=== PATIENT | female | born 1970 | race Caucasian/White ===

== ENCOUNTER 2019-09-20 13:10 | Outpatient (CLI) | payer OTHER, BC, SELFPAY ==
--- NOTE | ~2019-09-20 | US_ITS ---
EXAMINATION: 1. US FNA w image guidance 2. US FNA additional DATE: 09/20/2019 14:27 INDICATION: Multinodular goiter. TECHNIQUE: The procedure and its benefits, risks, and benefits were discussed with the patient. Risks specifical ly discussed included bleeding. The patient verbalized understanding of the risks and agreed to proce ed. The neck was prepped and draped in the usual sterile manner. 1% lidocaine was used for local ane sthesia. Five passes were made with a 25G needle into the lesion in superior right thyroid lobe. Ap propriate needle location was documented with continuous sonographic guidance. The specimens were pa ssed to the ocular care technologist in the room. Five passes were made with a 25G needle into the lesion in inferior right thyroid lobe. Appropriate needle location was documented with continuous sonographic guidance. The specimens were passed to [facility] ocular care technologist in the room. There were no immediate complications. The patient unders tood to call the ordering physician for results next week and verbalized that understanding. FINDINGS: Grayscale ultrasound images demonstrate needles advanced into a 2.0 cm nodule in superior right thyro id lobe for biopsy. Grayscale ultrasound images demonstrate needles advanced into a 1.6 cm nodule in inferior right thyroid lobe for biopsy. IMPRESSION: 1. Ultrasound-guided fine needle aspiration of a nodule in superior right thyroid lobe. 2. Ultrasound-guided fine-needle aspiration of a nodule in inferior right thyroid lobe. Reviewed, dictated and finalized at location A. OR DIRECTOR MARKETING IMPRESSION: 1. Ultrasound-guided fine needle aspiration of a nodule in superior right thyr oid lobe. 2. Ultrasound-guided fine-needle aspiration of a nodule in inferior right thyro id lobe.
== END 2019-09-20 13:11 | disposition home or self-care (01) ==
LOC: ANHIMG 13:17
PROVIDERS: Visit Provider Otolaryngology
DX: E04.2 Nontoxic multinodular goiter (principal)
CPT/HCPCS: 10005; 10006; 88108; 88173

== ENCOUNTER 2022-01-08 07:42 | Outpatient (CLI) | payer OTHER, SELFPAY ==
--- NOTE | ~2022-01-08 | US_ITS ---
EXAMINATION: US thyroid DATE: 01/08/2022 08:08 INDICATION: Nontoxic single thyroid nodule TECHNIQUE: Multiple ultrasound images of the thyroid were obtained. COMPARISON: 09/12/2019 and 09/20/2019 FINDINGS: The right thyroid lobe measures 6.2 x 2.0 x 2.4 cm. The left thyroid lobe measures 5.1 x 1.4 x 1.8 c m. There are multiple similar-appearing solid hypoechoic nodules which are wider than tall with eith er smooth or ill-defined margins. A few demonstrate internal echogenic foci (TI-RADS 5, highly suspic ious , FNA if >=1.0 cm, annual followup is >0.5 cm) and a few without (TI-RADS 4, moderately suspicio us , FNA if >=1.5 cm, annual followup is >=1 cm). The largest nodules are 2.1 cm TI-RADS 4 nodule in the lateral upper right thyroid and a couple 1.6 and 1.5 cm TI RADS 5 nodules in the inferior right t hyroid. The 2 largest of these nodules are unchanged from 09/20/2019 at which time they were biopsied with pathology read as benign colloid nodules. IMPRESSION: 1. Stable multinodular goiter with prior biopsy of the 2 largest nodules on 09/20/2019 consistent with benign colloid nodules. Reviewed, dictated and finalized at location A. IMPRESSION: 1. Stable multinodular goiter with prior biopsy of the 2 largest nodules on 08/24 consistent with benign colloid nodules.
== END 2022-01-08 07:43 ==
PROVIDERS: PCP Otolaryngology; Visit Provider Otolaryngology
DX: E04.2 Nontoxic multinodular goiter (principal)
CPT/HCPCS: 76536

== ENCOUNTER 2022-01-08 08:22 | Outpatient (CLI) | payer OTHER, SELFPAY ==
[2022-01-10 13:20] LABS: T4 Thyroxine 6.3 mcg/dL (5.1-11.9); Triiodothryronine T3 Uptake 29 % (22-35)
== END 2022-01-08 08:23 | disposition home or self-care (01) ==
LOC: ANHLAB 08:27
PROVIDERS: PCP Otolaryngology; Visit Provider Otolaryngology
DX: E04.1 Nontoxic single thyroid nodule (principal)
CPT/HCPCS: 36415; 84436; 84439; 84479

== ENCOUNTER 2022-07-23 12:44 | Outpatient (NON) | payer OTHER, SELFPAY | END 2022-07-23 12:45 | disposition home or self-care (01) | LOC: ANHGOSHLAB 12:48 | PROVIDERS: PCP Internal Medicine; Visit Provider Clinical Nurse Specialist | DX: R30.0 Dysuria (principal) | CPT/HCPCS: 87077; 87086; 87186 ==

== ENCOUNTER 2022-07-28 08:06 | Outpatient (CLI) | payer OTHER, SELFPAY ==
[2022-07-28 18:51] LABS: Basophils Percent Auto 0.5 % (0.2-1.2); Eosinophils Absolute Auto 0.1 K/mm3 (0-0.3); Eosinophils Percent Auto 0.7 % (0-4.4); Hematocrit 41.2 % (37.0-47.0); Hemoglobin 13.5 g/dL (12.0-15.0); Immature Granulocyte Absolute 0.02 K/mm3 (0.00-0.031); Immature Granulocyte Percent A 0.2 % (0-0.5); Lymphocytes Absolute Auto 1.23 K/mm3 (0.9-3.2); Lymphocytes Percent Auto 15.3 % (18.3-44.2); Mean Corpuscular HGB Conc 32.8 g/dl (32-36); Mean Corpuscular Hemoglobin 32.6 pg (26-34); Mean Corpuscular Volume 99.5 fl (80-100); Mean Platelet Volume 9.6 fl (7.4-10.4); Monocytes Absolute Auto 0.6 K/mm3 (0.1-0.6); Monocytes Percent Auto 7.7 % (2.6-8.5); Neutrophils Absolute Auto 6.1 K/mm3 (1.3-6.7); Neutrophils Percent Auto 75.6 % (45.5-73.1); Platelet Count Result 299 k/mm3 (150-375); Red Blood Count 4.14 M/mm3 (4.2-5.4); Red Cell Distribution Width 13.7 % (11.5-14.5)
[2022-07-28 19:56] LABS: Immunoglobulin A 89 mg/dL (70-400); Immunoglobulin G 944 mg/dL (700-1600); Immunoglobulin M 238 mg/dL (40-230)
[2022-07-28 20:15] LABS: Alanine Aminotransferase 25 U/L (6-35); Albumin Level 4.3 g/dL (3.5-5.1); Alkaline Phosphatase 66 U/L (38-126); Anion Gap 6 mmol/L (8-16); Aspartate Amino Transferase 31 U/L (14-36); Bilirubin,Total 0.8 mg/dL (0.2-1.3); Blood Urea Nitrogen 10 mg/dL (7-17); Calcium 8.7 mg/dL (8.4-10.2); Carbon Dioxide 25 mmol/L (22-30); Chloride 107 mmol/L (98-107); Cholesterol 236 mg/dL (0-200); Estimated Glomerular Filt Rate > 60; Glucose 112 mg/dL (65-110); HDL Direct 51 mg/dL; Potassium 3.6 mmol/L (3.4-5.0); Sodium 138 mmol/L (137-145); Triglycerides 76 mg/dL (<150)
[2022-07-28 20:27] LABS: LDL Cholesterol Direct 144 mg/dL; Vitamin D 25 Hydroxy 19.6 ng/mL
[2022-07-28 20:44] LABS: Thyroid Stimulating Hormone 0.042 uIU/mL (0.465-4.680)
[2022-07-29 17:53] LABS: Hemoglobin A1C 5.9 % (<5.7)
[2022-08-01 23:47] LABS: Immunoglobulin E 50 kU/L (<=114)
== END 2022-07-28 08:07 | disposition home or self-care (01) ==
LOC: ANHGOSHLAB 08:07
PROVIDERS: PCP Internal Medicine; Visit Provider Clinical Nurse Specialist
DX: E04.1 Nontoxic single thyroid nodule (principal); E55.9 Vitamin D deficiency, unspecified; Z13.228 Encounter for screening for other metabolic disorders; Z13.220 Encounter for screening for lipoid disorders; Z01.84 Encounter for antibody response examination
CPT/HCPCS: 36415; 80053; 80061; 82306; 82784; 82785; 83036; 84443; 85025

== ENCOUNTER 2022-11-22 17:00 | Outpatient (CLI) | payer OTHER, SELFPAY ==
[2022-11-22 18:12] LABS: Thyroid Stimulating Hormone 0.185 uIU/mL (0.465-4.680)
[2022-11-26 13:39] LABS: Thyroid Stimulating Immunoglob <89 % baseline (<140)
[2022-11-27 05:41] LABS: Triiodothyronine T3 Free 3.6 pg/mL (2.3-4.2)
== END 2022-11-22 17:01 | disposition home or self-care (01) ==
LOC: ANHLAB 17:02
PROVIDERS: PCP Clinical Nurse Specialist; Visit Provider Internal Medicine Endocrinology, Diabetes & Metabolism
DX: R79.89 Other specified abnormal findings of blood chemistry (principal); E04.1 Nontoxic single thyroid nodule
CPT/HCPCS: 36415; 84439; 84443; 84445; 84481

== ENCOUNTER 2022-12-20 14:53 | Outpatient (CLI) | payer OTHER, SELFPAY ==
--- NOTE | ~2022-12-20 | NM_ITS ---
Thyroid uptake and scan: History: Graves' disease versus toxic nodule. Radiopharmaceutical: 0.399 mCi of I-123 was administered orally. Technique: Imaging was informed of the thyroid gland in the anterior, VENEZUELAN, and ANAND planes. Markers ar e placed on the chin and suprasternal notch. Findings: There is homogeneous and symmetric uptake of radiotracer seen in both lobes of the thyroid gland. The thyroid uptake is 31.1% (normal 10-30%), with the right lobe measuring 21.1% uptake and the left 10.7%. Impression: Mildly increased, diffuse thyroid uptake. This could reflect Graves' disease in the appropriate clini gaby setting. Correlate clinically and with thyroid function tests. Reviewed, dictated and finalized at [facility]. Impression: Mildly increased, diffuse thyroid uptake. This could reflect Graves' disease in the appropriate clinical setting. Correlate clinically and with thyroid functi on tests.
== END 2022-12-20 14:54 | disposition home or self-care (01) ==
PROVIDERS: PCP Clinical Nurse Specialist; Visit Provider Internal Medicine Endocrinology, Diabetes & Metabolism
DX: E05.90 Thyrotoxicosis, unspecified without thyrotoxic crisis or storm (principal); R79.89 Other specified abnormal findings of blood chemistry
CPT/HCPCS: 78014; A9516

== ENCOUNTER 2024-11-26 10:00 | Outpatient (CLI) | payer BC, SELFPAY ==
[2024-11-26 10:54] LABS: Kit Draw Collected
--- OUTSIDE RECORDS SUMMARY | 2024-11-26 11:21 | XMS_ITS | Clinical Summary ---
Author Organization [facility] Address [id number] [place] [phone] Phone Care Team Providers Care Cloth Mender Name Role Phone Unavailable Primary Care Provider Unavailabl e Allergies No known active allergies Social History Tobacco Use Types Packs/Day Years Used Date Smoking Tobacco: Never Assessed Comments Unknown Sex and Gender Information Value Date Recorded Sex Assigned at Not on file Legal Sex Female 12:13 PM KINESIOLOGY PROFESSOR Gender Identity Not on file Sexual Orientation Not on file Last Filed Vital Signs Vital Sign Reading Time Taken Comments Blood Pressure 116/64 07/08/2022 2:05 PM KINESIOLOGY PROFESSOR Pulse 81 07/08/2022 3:45 PM KINESIOLOGY PROFESSOR Temperature 37.1 C (98.7 F) 07/08/2022 12:14 PM KINESIOLOGY PROFESSOR Respiratory Rate 18 07/08/2022 3:45 PM KINESIOLOGY PROFESSOR Oxygen Saturation 97% 07/08/2022 3:45 PM KINESIOLOGY PROFESSOR Inhaled Oxygen Concentration - - Weight 81.6 kg (180 lb) 07/08/2022 12:14 PM KINESIOLOGY PROFESSOR Height 170.2 cm (5' 7 ) 07/08/2022 12:14 PM KINESIOLOGY PROFESSOR Body Mass Index 28.19 07/08/2022 12:14 PM KINESIOLOGY PROFESSOR Plan of Treatment Health Maintenance Due Date Last Done Comments DTAP/TDAP/TD VACCINES (1 - Tdap) 1991 HEPATITIS B VACCINES (1 of 3 - 19+ 3-dose series) 1991 HPV/Cotest (21-29) 1993 CERVICAL CANCER SCREENING 2002 HPV/Cotest (30-65) 2002 PAP SMEAR 2002 BREAST CANCER SCREENING 2012 COLORECTAL SCREENING 2017 Colorectal Cancer Screening 2017 FIT-DNA Q 3 years 2017 FIT/FOBT Q 1 year 2017 Flex Sig/CT Colonography Q 5 years 2017 ZOSTER VACCINE (1 of 2) 2022 INFLUENZA VACCINE (#1) 2024 PNEUMOCOCCAL VACCINE 0-49 YEARS Aged Out No longer eligible based on patient's age to complete this topic Insurance
== END 2024-11-26 10:01 | disposition home or self-care (01) ==
LOC: ANHGOSHLAB 10:01
PROVIDERS: PCP Internal Medicine; Visit Provider Clinical Nurse Specialist
DX: E04.1 Nontoxic single thyroid nodule (principal); E05.90 Thyrotoxicosis, unspecified without thyrotoxic crisis or storm; R73.01 Impaired fasting glucose; Z13.228 Encounter for screening for other metabolic disorders; Z13.220 Encounter for screening for lipoid disorders; E55.9 Vitamin D deficiency, unspecified
CPT/HCPCS: 36415

== ENCOUNTER 2024-12-11 16:07 | Outpatient (CLI) | payer BC, SELFPAY ==
--- NOTE | ~2024-12-11 | US_ITS ---
EXAMINATION: US thyroid DATE: 12/11/2024 16:27 INDICATION: Thyroid nodules. Personal history of multiple prior fine-needle aspirations, all benign TECHNIQUE: Multiple ultrasound images of the thyroid were obtained. COMPARISON: 01/08/2022 and dating back to 11/04/2012 FINDINGS: The right thyroid lobe measures 6 x 2 x 2.4 cm. Within the right lobe of the thyroid gland is a 22 x 14 x 15 mm nodule: Composition - spongiform Echogenicity -hyperechoic and isoechoic (1) Shape - wider than tall Margin - smooth Echogenic foci - none. = TR 1, benign. This nodule underwent biopsy in August of 2019, and yielded benign colloid nodule with cystic degene ration. Within the right lobe of the thyroid gland is a 13 x 10 x 10 mm nodule: Composition - spongiform Echogenicity -hyperechoic and isoechoic (1) Shape - wider than tall Margin - smooth Echogenic foci -punctate echogenic foci (3) = TR 4, moderately suspicious Greater than 1 cm, follow-up. Greater than 1.5 cm, FNA This nodule underwent biopsy in August of 2019, and yielded benign colloid nodule. The left thyroid lobe measures 5 x 1.3 x 1.6 cm. Within the left lobe of the thyroid gland is a 15 x 8 x 14 mm nodule: Composition - spongiform Echogenicity -hyperechoic and isoechoic (1) Shape - wider than tall Margin - smooth Echogenic foci - none. = TR 1, benign. Within the left lobe of the thyroid gland is a 6 x 4 x 8 mm nodule: Composition - spongiform Echogenicity -hyperechoic and isoechoic (1) Shape - wider than tall Margin - smooth Echogenic foci -macrocalcifications (1) = TR 2, not suspicious, no FNA The isthmus measures 0.3cm in anterior to posterior dimension. Within the isthmus of the thyroid gland is a 17 x 8 x 15 mm nodule: Composition -solid or almost completely solid (2) Echogenicity -hypoechoic (2) Shape - wider than tall Margin - smooth Echogenic foci - none. = TR 4, moderately suspicious Greater than 1 cm, follow-up. Greater than 1.5 cm, FNA This nodule was biopsied in 2018 yielding a benign follicular nodule with features of a hemorrhagic c yst. This nodule is unchanged in size from 2018 for which no further biopsy is recommended. There is otherwise normal homogeneous echotexture throughout the remainder of the thyroid gland. No a dditional discrete nodules identified. Increased vascular flow is present, unchanged from prior examinations.. IMPRESSION: Two nodules within the right lobe of the thyroid gland, both previously biopsied yielding benign resu lts for which no further biopsy is recommended. Two nodules within the left lobe of the thyroid gland, one demonstrating a TR 1 appearance (benign), and the second nodule demonstrating a TR 2 appearance (not suspicious, no FNA). A single nodule within the isthmus, unchanged in size from prior, demonstrating a TR 4 appearance for which biopsy was previously performed in 2018 yielding a benign follicular nodule with features of a hemorrhagic cyst for which no further biopsy is recommended. While follow-up of the bilateral nodules is not recommended (as per TI-RADS criteria) it may be perfo rmed. Reviewed, dictated and finalized at location A. IMPRESSION: Two nodules within the right lobe of the thyroid gland, both previously biopsie d yielding benign results for which no further biopsy is recommended. Two nodules within the left lobe of the thyroid gland, one demonstrating a TR 1 appearance (benign), and the second nodule demonstrating a TR 2 appearance (no t suspicious, no FNA). A single nodule within the isthmus, unchanged in size from prior, demonstrating a TR 4 appearance for which biopsy was previously performed in 2018 yielding a benign follicular nodule with features of a hemorrhagic cyst for which no furt her biopsy is recommended. While follow-up of the bilateral nodules is not recommended (as per TI-RADS cri teria) it may be performed.
== END 2024-12-11 16:08 | disposition home or self-care (01) ==
LOC: MICIMG 16:08
PROVIDERS: PCP Internal Medicine; Visit Provider Clinical Nurse Specialist
DX: E04.2 Nontoxic multinodular goiter (principal)
CPT/HCPCS: 76536

== ENCOUNTER 2025-06-03 03:13 | Day surgery (SDC) | payer BC, SELFPAY ==
[2025-05-23 09:26] VITALS: BMI 26.6
--- OUTSIDE RECORDS SUMMARY | 2025-06-03 03:15 | XMS_ITS | Patient Health Record ---
Author Organization [facility] Address [address] [place] [address] Care Team Providers Care Handle Finisher Name Role Phone Susy Jimenez Unavailable [phone] Reason For Referral No Information Medications Medication SIG (Take, Route, Frequency, Duration) Notes Start Date End Date Status Ergocalciferol 1.25 MG (85622 UT) Capsule 1 capsule Orally weekly; Duration: 90 days 03/18/2025 Active Vitamin D Active Omeprazole Active Social History Section Notes: tobacco: daily, over 35 years alcohol: maybe once a year Caffeine: yes Problems Problem Type SNOMED Code ICD Code Onset Dates Problem Status W/U Status Risk Notes Problem Chronic fatigue syndrome (disorder) (20504950) Chronic fatigue, unspecified (R53.82) Active confirmed Problem Multinodular goiter (047825881) Multinodular goiter (E04.2) Active confirmed Problem Type II diabetes mellitus without complication (961947568) Type 2 diabetes mellitus without complication, without long-term current use of insulin (E11.9) Active confirmed Problem Vitamin D deficiency (64786832) Vitamin D deficiency (E55.9) Active confirmed Vital Signs Heart Rate 69 /min 02/25/2025 Height-cm 170.18 cm 02/25/2025 Oximetry 97 % 02/25/2025 Blood pressure diastolic 78 mm Hg 02/25/2025 Weight-kg 78.93 kg 02/25/2025 Height 67 in 02/25/2025 Blood pressure systolic 137 mm Hg 02/25/2025 Weight 174.0 lbs 02/25/2025 BMI 27.25 kg/m2 02/25/2025 Encounters Encounter Location Date Provider Diagnosis [facility] Jimenez [address] [place] [address] 01/21/2025 Susy Jimenez Multinodular goiter E04.2 ; Type 2 diabetes mellitus without complication, without long-term current use of insulin E11.9 ; Multinodular goiter E04.2 ; Vitamin D deficiency E55.9 ; Type 2 diabetes mellitus without complication, without long-term current use of insulin E11.9 ; Vitamin D deficiency E55.9 ; Chronic fatigue, unspecified R53.82 and Dietary counseling and surveillance Z71.[address] Jimenez [address] [place] [address] 02/25/2025 Susy Jimenez Type 2 diabetes adrian litus without complication, without long-term current use of insulin E11.9 ; Vitamin D deficiency E55.9 ; Multinodular goiter E04.2 and Sensory motor neuropathy G62.[address] Jimenez [address] [place] [address] 03/18/2025 Susy Jimenez Vitamin D deficienc y E55.9 Assessments Encounter Date Diagnosis (ICD Code) Assessment Notes Treatment Notes Treatment Clinical Notes Section Notes 01/21/2025 Multinodular goiter (ICD-10 - E04.2) 01/21/2025 Multinodular goiter (ICD-10 - E04.2) 01/21/2025 Type 2 diabetes mellitus without complication, without long-term current use of insulin (ICD-10 - E11.9) 02/25/2025 Type 2 diabetes mellitus without complication, without long-term current use of insulin (ICD-10 - E11.9) 02/25/2025 Vitamin D deficiency (ICD-10 - E55.9) 03/18/2025 Vitamin D deficiency (ICD-10 - E55.9) 02/25/2025 Multinodular goiter (ICD-10 - E04.2) 01/21/2025 Type 2 diabetes mellitus without complication, without long-term current use of insulin (ICD-10 - E11.9) 01/21/2025 Vitamin D deficiency (ICD-10 - E55.9) 01/21/2025 Vitamin D deficiency (ICD-10 - E55.9) 02/25/2025 Sensory motor neuropathy (ICD-10 - G62.9) 01/21/2025 Chronic fatigue, unspecified (ICD-10 - R53.82) 01/21/2025 Dietary counseling and surveillance (ICD-10 - Z71.3) Spent 15 minutes preventative counseling patient on dietary recommendations and changes in setting of hyperglycemia- need to restrict refined sugars and processed foods and incorporate up to 150 minutes of moderate level activity weekly. 01/21/2025 Other Assessment and Plan: 1. Thyroid Dysfunction- Order full thyroid panel- Check iodine levels - Consider thyroid support- Ultrasound referral sent- Follow-up in 4-6 weeks with new blood work results 2. Prediabetes- Monitor blood sugar levels- Encourage continued dietary modifications and weight loss efforts- Reassess A1C and glucose levels at follow-up 3. Menopausal Symptoms- No specific treatment plan discussed for menopausal symptoms 4. Vitamin D Deficiency- Continue vitamin D supplementation- Check vitamin D levels at follow-up 5. Episodic Numbness and Syncope- Patient to report any future episodes for further evaluation- Consider more extensive workup if episodes continue 6. Elevated Liver Enzymes- Monitor liver enzyme levels in future lab work 7. Smoking- Encourage continued reduction in smoking and eventual cessation Spent 30 minutes preparing to see the patient (ex review of tests/chart), obtaining and / or reviewing separately obtained history, performing a medically appropriate examination and/or evaluation, counseling and educating the patient/family/auto care center manager, ordering medications, tests, or procedures, referring and communicating with other health health care aide, documenting clinical information in the electronic or other health record, independently interpreting results and communicating results to the patient/family/auto care center manager and care coordinating patient plan. Patient alert and oriented x 4 and aware of discussion noted above and in agreeance to plan in management of multinodular goiter, hyperglycemia/a1c 6.4%, weight management and fatigue. 02/25/2025 Other Assessment and Plan: 1. Thyroid Disorder- Order full thyroid panel, including TSI and TPO antibodies- Recommend thyroid supplements: 1-2 capsules daily (150 micrograms iodine per capsule)- Review lab results when available and adjust management accordingly- Follow up in 3-4 months or sooner if symptoms worsen- Monitor for symptoms such as weakness, heart racing, sleep disturbances, dizziness, or lightheadedness 2. Type 2 Diabetes Mellitus- Order hemoglobin A1c test- Evaluate impact of dietary changes on glycemic control- Provide education on diabetes management and importance of consistent dietary habits- Review results and adjust management as needed 3. Vitamin D Deficiency- Recommend vitamin D supplementation at least weekly (specific dosage to be determined)- Order vitamin D level with next set of labs to monitor response to supplementation 4. Fatigue and Exhaustion- Evaluate thyroid function, diabetes control, and vitamin D levels through ordered labs- Consider MRI of the brain if symptoms persist or worsen, particularly if accompanied by neurological symptoms such as blurred vision, double vision, incontinence, or unusual sensations- Instruct patient to report any worsening symptoms or new neurological symptoms 5. Elevated Liver Enzymes- Include liver function tests in the ordered lab work- Review results and consider further evaluation or referral if elevation persists 6. Weight Management- Encourage continuation of positive lifestyle changes, including smoking reduction and soda elimination- Provide education on healthy eating habits, particularly regarding candy consumption- Monitor weight at follow-up visits Spent 25 minutes preparing to see the patient (ex review of tests/chart), obtaining and / or reviewing separately obtained history, performing a medically appropriate examination and/or evaluation, counseling and educating the patient/family/auto care center manager, ordering medications, tests, or procedures, referring and communicating with other health health care aide, documenting clinical information in the electronic or other health record, independently interpreting results and communicating results to the patient/family/auto care center manager and care coordinating patient plan. Patient alert and oriented x 4 and aware of discussion noted above and in agreeance to plan in management of type 2 DM/diet controlled, vit D def, MNG and concerns for sensory changes/MRI brain ordered and provided to patient. Plan Of Treatment Pending Test Test Name Order Date .COMPREHENSIVE METABOLIC PANEL (70598) C MP 01/21/2025 .CBC (INCLUDES DIFF/PLT) (6399) 01/22/20 25 THYROID PEROXIDASE ANTIBODIES (5081) 09/2024 VITAMIN B12/FOLATE, SERUM PANEL (7065) 0 01/21/2025 T4, FREE (866) 01/21/2025 TSH (899) 01/21/2025 T3, FREE (88760) 01/21/2025 .VITAMIN D,25-OH,TOTAL,IA (19003) 2024 IODINE, SERUM/PLASMA (09012) 01/21/2025 TSI (THYROID STIMULATING IMMUNOGLOBULIN) (81713) 01/21/2025 *MRI BRAIN W/O AND W/ CONTRAST [EBENEZERATDUNCAN ISICA] 30042 02/25/2025 Insurance Providers Payer Name Payer Address Payer Phone Subscriber Number Group Number Insured Name Patient Relationship to Insured Coverage Start Date Coverage End Date Mildred NOVOA [address] [place] [address] [id number] Dana Landeros Self - patient is the insured Medical (General) History Medical History History ICD Code type 2 diabetes hyperthyroidism
--- OUTSIDE RECORDS SUMMARY | 2025-06-03 03:15 | XMS_ITS | Clinical Summary ---
Author Organization [facility] Address [address] [place] [address] Care Team Providers Care Engineer Chief Name Role Phone Unknown, Notinfile Primary Care Provider Unavail able Allergies No known active allergies Medications No known medications Active Problems Problem Noted Date Diagnosed Date Epistaxis, recurrent 05/01/2025 Assessment & Plan (05/01/2025 6:51 PM CDT): Patient with spontaneous recurrent left nares epistaxis. Unable to visualize area of origin. Previous episodes in the past have required cauterization. Soaked cotton ball in Afrin nasal spray and placed in left naris. This was beneficial initially however bleeding once again returned. Patient instructed on need for emergency room evaluation as she will most likely need nasal packing or cauterization. Patient and son and daughter in agreement with plan of care and plan to take patient to [facility] here. Encounters Date Type Department Care Team Description 05/01/2025 5:45 PM CDT Office Visit [facility] [address] [place] [address] Madeline Means, MARCOS Epistaxis, recurrent (Primary Dx) from Last 3 Months Medical History Medical History Date Comments Personal history of other en docrine, nutritional and metabolic disease History of thyroid d isorder - (Added by TW Conv) Family History Medical History Relation Name Comments Lymphoma Father Family history of lymphoma - (Added by TW Conv) Thyroid disease Other Family histo ry of thyroid disease - (Added by TW Conv) Relation Name Status Comments Father Other Social History Tobacco Use Types Packs/Day Years Used Date Smoking Tobacco: Never Assessed Comments Unknown Sex and Gender Information Value Date Recorded Sex Assigned at Not on file Legal Sex Female 8:39 AM 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 TEACHING Gender Identity Not on file Sexual Orientation Not on file Obstetrics History Last Filed Vital Signs Vital Sign Reading Time Taken Comments Blood Pressure - - Pulse - - Temperature 36.6 C (97.9 F) 05/01/2025 5:45 PM CDT Respiratory Rate 18 05/01/2025 5:45 PM CDT Oxygen Saturation - - Inhaled Oxygen Concentration - - Weight - - Height - - Body Mass Index - - Plan of Treatment Health Maintenance Due Date Last Done Comments Breast Cancer Screening-Mammogram 1972 Cervical Cancer Screening 1972 Colon Cancer Screening-Colonoscopy 1972 Depression Screening 1972 Hepatitis C Screening 1972 DTaP/Tdap/Td Vaccine (1 - Tdap) 1983 Hepatitis B Screening 1990 Regular Well Visit/Exam 18-64 1990 Zoster Vaccine (1 of 2) 2022 Influenza Vaccine (#1) 2025 Pneumococcal vaccine <65 Aged Out No longer eligible based on patient's age to complete this topic Insurance [employer] [place] BLUE [facility] O Care Teams Engineer Chief Relationship Specialty Start Date End Date Unknown, Notinfile PCP - General 09/02/17
--- OUTSIDE RECORDS SUMMARY | 2025-06-03 03:15 | XMS_ITS | Clinical Summary ---
Author Organization [facility] Address [facility] [place] [address] Care Team Providers Care Reading Tutor Name Role Phone Brenda Dubose ELECTRONICS RESEARCH ENGINEER Primary Care Provider [phone] Allergies No known active allergies Medications No known medications Encounters Date Type Department Care Team Description 05/01/2025 6:47 PM CDT - 05/01/2025 9:11 PM CDT Emergency [facility] [place] [address] Nosebleeds Discharge Disposition: Left Against Medical Advice 05/01/2025 Travel from Last 3 Months Social History Tobacco Use Types Packs/Day Years Used Date Smoking Tobacco: Every Day Cigarettes Smokeless Tobacco: Never Tobacco Cessation:Ready to Q uit: Not Asked; Counseling Given: Not Answered Alcohol Use Standard Drinks/Week Comments Not Currently 0 (1 standard drink = 0.6 oz pur e alcohol) Comments No Sex and Gender Information Value Date Recorded Sex Assigned at Not on file Legal Sex Female 6:29 PM CDT Gender Identity Not on file Sexual Orientation Not on file Last Filed Vital Signs Vital Sign Reading Time Taken Comments Blood Pressure 141/80 05/01/2025 7:25 PM CDT Pulse 75 05/01/2025 8:40 PM CDT Temperature 36.4 C (97.5 F) 05/01/2025 6:32 PM CDT Respiratory Rate 20 05/01/2025 8:40 PM CDT Oxygen Saturation 98% 05/01/2025 8:40 PM CDT Inhaled Oxygen Concentration - - Weight 79.4 kg (175 lb) 05/01/2025 6:32 PM CDT Height 170.2 cm (5' 7) 05/01/2025 6:32 PM CDT Body Mass Index 27.41 05/01/2025 6:32 PM CDT Plan of Treatment Health Maintenance Due Date Last Done Comments Cervical Cancer Screening Pa p Smear (Age 30 to 64) Every 3 Years 1972 Colorectal Cancer Screening Colonoscopy (10 Years) 1972 Annual Physical 1975 Hepatitis C 1990 DTaP, Tdap and Td Vaccines ( 1 - Tdap) 1991 Hepatitis B Vaccines (1 of 3 - 19+ 3-dose series) 1991 Pneumococcal Vaccine: 50+ Ye ars (1 of 2 - PCV) 1991 Cervical Cancer Screening Pa p with HPV Testing (Age 30 to 64) Every 5 Years 2002 Cervical Cancer Screening with HPV 2002 Mammogram Screening 2012 Zoster Vaccines (1 of 2) 2022 COVID-19 Vaccine (2023-2 5 season) 2025 Influenza Adult (#1) 2025 Meningococcal B Vaccine Aged Out No l onger eligible based on patient's age to complete this topic Meningococcal Vaccine Aged Out No elisha serene eligible based on patient's age to complete this topic RSV Immunizations Under 20 Months Aged Out No longer eligible based on patient's age to complete this topic Procedures Procedure Name Priority Date/Time Associated Diagnosis Comments COMPREHENSIVE METABOLIC PANEL STAT 05/01/2025 6:54 PM CDT CBC W/DIFF AUTOMATED STAT 05/01/2025 6:54 PM CDT from Last 3 Months Results * (ABNORMAL) COMPREHENSIVE METABOLIC PANEL (05/01/2025 6:54 PM CDT) GLUCOSE 133(H) 70 - 99 MG/DL 05/01/2025 7:27 PM CDT [facility] BUN 11 7 - 18 MG/DL 05/01/2025 7:27 PM CDT [facility] CREATININE S/P/B 0.78 0.55 - 1.02 MG/DL 05/01/2025 7:27 PM CDT [facility] SODIUM S/P/B 139 136 - 145 MMOL/L 05/01/2025 7:27 PM CDT [facility] POTASSIUM S/P/B 3.4(L) 3.5 - 5.1 MMOL/L 05/01/2025 7:27 PM CDT [facility] CHLORIDE S/P/B 108 97 - 115 MMOL/L 05/01/2025 7:27 PM CDT [facility] CO2 26.4 21 - 32 MMOL/L 05/01/2025 7:27 PM CDT [facility] CALCIUM S/P/B 9.6 8.5 - 10.1 MG/DL 05/01/2025 7:27 PM CDT [facility] BILIRUBIN TOTAL S/P/B 0.3 0.2 - 1.2 MG/DL 05/01/2025 7:27 PM CDT [facility] Comment: THIS ASSAY IS NOT RECOMMENDED FOR PATIENTS UNDERGOING TREATMENT WITH ELTROMBOPAG DUE TO THE POTENTIAL FOR FALSELY ELEVATED RESULTS. TOTAL PROTEIN S/P/B 7.1 6.4 - 8.2 G/DL 05/01/2025 7:27 PM CDT [facility] ALBUMIN S/P/B 3.8 3.4 - 5.0 G/DL 05/01/2025 7:27 PM CDT [facility] AST 25 15 - 37 U/L 05/01/2025 7:27 PM CDT [facility] ALT 30 14 - 55 U/L 05/01/2025 7:27 PM T [facility] ALKALINE PHOSPHATASE S/P/B 70 50 - 136 U/L 05/01/2025 7:27 PM CDT [facility] ANION GAP 4.6 2 - 10 MMOL/L 05/01/2025 7:27 PM CDT [facility] BUN CREATININE RATIO 14.1 6 - 26 05/01/2025 7:27 PM CDT [facility] A/G RATIO 1.2 1.0 - 2.0 RATIO 05/01/2025 7:27 PM CDT [facility] GFR ESTIMATE >90 >90 ML/MIN/1.7 3 M2 05/01/2025 7:27 PM CDT [facility] Comment: NOTE: eGFR is not calculated for patients <18 years of age or gender unknown. This is an estimated GFR calculation using the new CKD EPI creatinine equation without race and so does not require a correction factor for race. This estimated GFR should not be used for calculating drug doses. 05/01/2025 6:54 PM CDT Peter Gonzales PA-C LABORATORY Final Resul t [facility] [address] [id number], [place] [phone] * (ABNORMAL) CBC W/DIFF AUTOMATED (05/01/2025 6:54 PM CDT) WBC 9.83 4.5 - 11.0 x10'3/uL 05/01/2025 7:24 PM CDT [facility] RBC 4.12(L) 4.20 - 5.40 x10'6/uL 05/01/2025 7:24 PM CDT [facility] HGB 13.3 12.0 - 16.0 G/DL 05/01/2025 7:24 PM CDT [facility] HCT 39.3 38.0 - 48.0 % 05/01/2025 7:24 PM CDT [facility] MCV 95.4 81.0 - 99.0 FL 05/01/2025 7:24 PM CDT [facility] MCH 32.3(H) 27.0 - 31.0 PG 05/01/2025 7:24 PM CDT [facility] MCHC 33.8 32.0 - 36.0 G/DL 05/01/2025 7:24 PM CDT [facility] RDW 12.9 11.5 - 14.5 % 05/01/2025 7:24 PM CDT [facility] PLT 282 130 - 400 x10'3/uL 05/01/2025 7:24 PM CDT [facility] MPV 9.7 9.3 - 12.2 FL 05/01/2025 7:24 PM CDT [facility] DIFFERENTIAL TYPE AUTOMATED DIFFERENTIAL 05/01/2025 7:24 PM CDT [facility] NEUTROPHILS % 67.5 % 05/01/2025 7:24 PM CDT [facility] LYMPHOCYTES % 22.0 % 05/01/2025 7:24 PM CDT [facility] MONOCYTES % 9.4 % 05/01/2025 7:24 PM CDT [facility] EOSINOPHILS 0.7 % 05/01/2025 7:24 PM CDT [facility] BASOPHILS 0.2 % 05/01/2025 7:24 PM CDT [facility] IMMATURE GRANS % 0.2 % 05/01/20 7:24 PM CDT [facility] ABS. NEUTROPHILS 6.64 1.80 - 7.70 x10'3/uL 05/01/2025 7:24 PM CDT [facility] ABS. LYMPHOCYTES 2.16 1.00 - 4.80 x10'3/uL 05/01/2025 7:24 PM CDT [facility] ABS. MONOCYTES 0.92(H) 0.24 - 0.86 x10'3/uL 05/01/2025 7:24 PM CDT [facility] ABS. EOSINOPHILS 0.07 0.04 - 0.36 x10'3/uL 05/01/2025 7:24 PM CDT [facility] ABS. BASOPHILS 0.02 0.01 - 0.08 x10'3/uL 05/01/2025 7:24 PM CDT [facility] ABS. IMMATURE GRANULOCYTES 0.02 0.00 - 0.49 x10'3/uL 05/01/2025 7:24 PM CDT [facility] 05/01/2025 6:54 PM CDT Peter Gonzales PA-C LABORATORY Final Resul t [facility] [address] [id number], from Last 3 Months Insurance Care Teams Reading Tutor Relationship Specialty Start Date End Date Brenda Dubose FNP [address] [place] [address] [address] [place] [address] PCP - General CLINICAL NURSE SPECIALIST 05/01/25
--- OUTSIDE RECORDS SUMMARY | 2025-06-03 03:15 | XMS_ITS | Patient Health Record ---
Author Organization [facility] [employer] [employer] Address [address] [place] [address] Care Team Providers Care Nut Chopper Name Role Phone UNKNOWN, UNKNOWN Primary Care Provider Greg Zuñiga [phone] Allergies No Known Allergies Reason For Referral No Information Medications Medication SIG (Take, Route, Fr equency, Duration) Notes Start Date End Date Status Esomeprazole Magnesium Active Ergocalciferol Activ e Social History Tobacco Use: Social History Observation Description Date Details (start date - stop date) Current Smoker NA - NA Social History Tobacco Use: Social Info Question Answer Notes Tobacco Control (Standard) Tobacco use: Current smoker How often do you smoke cigarettes? Every day How many cigarettes a day do you smoke? 6-10 Additional Details Category Social Info Options Details Miscellaneous: Exercise: none Drugs/Alcohol: Alcohol use: Denies curren t alcohol use Recreational drugs Patient denie s recreational drug use Problems Problem Type SNOMED Code ICD Code Onset Dates Problem Status W/U Status Risk Notes Problem Type II diabetes mellitus without complication (211115352) Type 2 diabetes mellitus without complication, without long-term current use of insulin (E11.9) Active confirmed Vital Signs Height 67 in 12/27/2024 Weight 175 lbs 12/27/2024 BMI 27.41 kg/m2 12/27/2024 Encounters Encounter Location Date Provider Diagnosis [address] [facility] [address] [place] [address] 12/27/2024 Greg Vang Mucoid cyst, joint M67.40 ; Myxoid cyst M71.30 ; Toe pain, left M79.675 and Type 2 diabetes mellitus without complication, without long-term current use of insulin E11.9 Assessments Encounter Date Diagnosis (ICD Code) Assessment Notes Treatment Notes Treatment Clinical Notes Section Notes 12/27/2024 Mucoid cyst, joint (ICD-10 - M67.40) 12/27/2024 Myxoid cyst (ICD-10 - M71.30) 12/27/2024 Toe pain, left (ICD-10 - M79.675) 12/27/2024 Type 2 diabetes mellitus without complication, without long-term current use of insulin (ICD-10 - E11.9) Diabetic foot education was discussed including the nature of increased risk of developing foot problems due to the damage nerves and vessels of the feet caused by diabetes. The importance of daily self foot exams was stressed. Additionally, the patient was encouraged to control the blood sugar as well as possible and I explained the direct correlation between the incidence of diabetic foot complications and how well the blood sugar is controlled. I encouraged the patient to walk for exercise to help improve circulation to the feet as well as to help control excess blood sugar which I explained may also help to reduce or slow the progression of neuropathy symptoms. Additionally I recommended daily application of lotion to the feet to keep skin well hydrated. Advised to avoid walking w/o shoes on and discussed the importance of wearing properly fitted and supportive shoes and how wearing a shoe that does not fit properly can lead to blisters, open sores, infections and amputation. Literature regarding diabetic foot care was dispensed 12/27/2024 Other I did examine a nd evaluate the patient today. I explained to the patient that she is suffering from mucoid or myxoid cysts and have recommended that since there are asymptomatic that she leave them alone and stop picking at them. She should monitor for any worsening symptoms such as pain or signs of infection and certainly if they do become symptomatic I did explain to her that a lot of times I will go ahead and anesthetize the digit and perform a destructive procedure to the cysts however performing that procedure does have a higher recurrence rate than performing an arthroplasty of the associated joint. I will see her back in clinic on an as-needed basis Plan Of Treatment No Information Insurance Providers Payer Name Payer Address Payer Phone Subscriber Number Group Number Insured Name Patient Relationship to Insured Coverage Start Date Coverage End Date [facility] [address] [place] [address] [id number] Dana Landeros Self - patient is the insured Medical (General) History Medical History History ICD Code Diabetes High cholesterol Thyroid disease
--- OUTSIDE RECORDS SUMMARY | 2025-06-03 03:15 | XMS_ITS | Clinical Summary ---
Author Organization [facility] Address [address] [place] [id number] Phone Care Team Providers Care Quarry Supervisor Open Pit Name Role Phone Unavailable Primary Care Provider Unavailabl e Allergies No known active allergies Social History Tobacco Use Types Packs/Day Years Used Date Smoking Tobacco: Never Assessed Comments Unknown Sex and Gender Information Value Date Recorded Sex Assigned at Not on file Legal Sex Female 12:13 PM PASTE UP ARTIST Gender Identity Not on file Sexual Orientation Not on file Last Filed Vital Signs Vital Sign Reading Time Taken Comments Blood Pressure 116/64 07/08/2022 2:05 PM PASTE UP ARTIST Pulse 81 07/08/2022 3:45 PM PASTE UP ARTIST Temperature 37.1 C (98.7 F) 07/08/2022 12:14 PM PASTE UP ARTIST Respiratory Rate 18 07/08/2022 3:45 PM PASTE UP ARTIST Oxygen Saturation 97% 07/08/2022 3:45 PM PASTE UP ARTIST Inhaled Oxygen Concentration - - Weight 81.6 kg (180 lb) 07/08/2022 12:14 PM PASTE UP ARTIST Height 170.2 cm (5' 7) 07/08/2022 12:14 PM PASTE UP ARTIST Body Mass Index 28.19 07/08/2022 12:14 PM PASTE UP ARTIST Plan of Treatment Health Maintenance Due Date Last Done Comments DTAP/TDAP/TD VACCINES (1 - Tdap) 1991 HEPATITIS B VACCINES (1 of 3 - 19+ 3-dose series) 08/23 HPV/Cotest (21-29) 1993 CERVICAL CANCER SCREENING 2002 HPV/Cotest (30-65) 2002 PAP SMEAR 2002 BREAST CANCER SCREENING 2012 COLORECTAL SCREENING 2017 Colorectal Cancer Screening 2017 FIT-DNA Q 3 years 2017 FIT/FOBT Q 1 year 2017 Flex Sig/CT Colonography Q 5 years 2017 ZOSTER VACCINE (1 of 2) 2022 INFLUENZA VACCINE (#1) 2025 Insurance
--- NOTE | 2025-06-03 07:11 | P.PNAN_ITS ---
Anes - Initial Pre Proc Eval Procedure: Operation Date: 06/03/25 10:00 Proposed Procedures p Esophagogastroduodenoscopy & Colonoscopy - Morales Yousif MD Date/Time: 06/03/25 07:11 Surgeon: Morales Yousif MD Pre Op Diagnosis: Dysphagia, unspecified, Screening Patient Data Age: 54 Gender: F Height: 1.7 m Weight: 77 kg Allergies Allergy/AdvReac Type Severity Reaction Status Date / Time No Known Allergies Allergy Verified 06/03/25 08:44 Home Medications ?Medication ?Instructions ?Recorded ?Confirmed ?Type blood sugar diagnostic (Blood #50 ea 12/10/24 Rx Glucose Test strips) blood-glucose meter #1 ea 12/10/24 Rx cholecalciferol (vitamin D3) 1,250 1,250 mcg PO WEEKLY #8 tabs 12/10/24 06/03/25 Rx mcg (50,000 unit) tablet lancets 31 gauge #100 ea 12/10/24 Rx mupirocin 2 % topical ointment 1 applic topical QID #2 2 grams 05/02/25 05/23/25 Rx (Centany) Patient hx anesthesia problems: none Family hx anesthesia problems: none Results Review: All pre-operative results and documents have been reviewed as part of the pre- operative evaluation. [facility] Past Medical History Medical History (Updated 05/31/25 @ 15:50 by Jose Luis Byers DO) Type 2 diabetes mellitus Hyperglycemia Prediabetes Encounter to [facility] care Hospital discharge follow-up Migraine Headache Thyroid nodule Family History Family History Father Lymphoma Mother Thyroid disorder Sibling Thyroid disorder Social History Social History (Updated 06/03/25 @ 08:56 by Jose Luis Byers DO) Smoking packs per day: 1 Smoking cigarettes per day: 20.0 Years smoked: 40 Smoking pack-years: 40.00 Smoking status: Current every day smoker Tobacco type: cigarettes Alcohol intake: never Substance use: current Substance use type: marijuana Other substance usage details: daily Lack of Transportation: No Lack of Food: Never True Current Housing: I Have Housing Concerned About Future Housing: No Difficulty Paying Gas/Electric Bills: No Difficulty Paying for Meds: No Currently Unemployed: No Education: Associate Degree Difficulty w/ Childcare or Family Care: No Living arrangements: with family Occupation/Education: occupation 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 Informed Consent: The patient's anesthetic plan and its attendant risks and benefits were discussed with the patient/family/POA. Questions were solicited and answers provided to the satisfaction of the patient/family/POA.
[2025-06-03 08:47] VITALS: BP 145/71; PULSE 66; RESP 18; TEMP 36.6; O2SAT 100
[2025-06-03 08:53] LABS: BEDSIDEPREGUCG Negative (Negative)
[2025-06-03] MEDS: LACTATED RINGERS 1,000 ML 150 ML IV CONT (08:58)
[2025-06-03] MEDS: SIMETHICONE ORAL SUSPENSION 20 MG/0.3 ML 30 ML BOTTLE 1.8 ML PO (09:03)
--- NOTE | 2025-06-03 09:47 | PM.IMHP ---
H&P: [facility] History of Present Illness Date/Time: 06/03/25 09:47 Chief Complaint: Dysphagia-screening colonoscopy Narrative: this patient has been experiencing dysphagia to solid foods closely for the past 2 years, progressively worsening. He gets at least 3 episodes of dysphagia per week. She denies heartburn, nausea, vomiting or unintentional weight loss. In addition to an EGD, she is also referred for her 1st screening colonoscopy. There is no family history of colorectal cancer. Review of Systems Review of Systems: All systems reviewed & are unremarkable except as noted in HPI and below PMFSH Past Medical History Medical History (Updated 05/31/25 @ 15:50 by Jose Luis Byers DO) Type 2 diabetes mellitus Hyperglycemia Prediabetes Encounter to [facility] care Hospital discharge follow-up Migraine Headache Thyroid nodule Family History Family History Father Lymphoma Mother Thyroid disorder Sibling Thyroid disorder Social History Social History (Updated 06/03/25 @ 08:56 by Jose Luis Byers DO) Smoking packs per day: 1 Smoking cigarettes per day: 20.0 Years smoked: 40 Smoking pack-years: 40.00 Smoking status: Current every day smoker Tobacco type: cigarettes Alcohol intake: never Substance use: current Substance use type: marijuana Other substance usage details: daily Lack of Transportation: No Lack of Food: Never True Current Housing: I Have Housing Concerned About Future Housing: No Difficulty Paying Gas/Electric Bills: No Difficulty Paying for Meds: No Currently Unemployed: No Education: Associate Degree Difficulty w/ Childcare or Family Care: No Living arrangements: with family Occupation/Education: occupation 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 Gender identity (if verbalized by the patient): Female Spiritual care concerns: No Meds Home Medications and Allergies Home Medications ?Medication ?Instructions ?Recorded ?Confirmed ?Type blood sugar diagnostic (Blood #50 ea 12/10/24 Rx Glucose Test strips) blood-glucose meter #1 ea 12/10/24 Rx cholecalciferol (vitamin D3) 1,250 1,250 mcg PO WEEKLY #8 tabs 12/10/24 06/03/25 Rx mcg (50,000 unit) tablet lancets 31 gauge #100 ea 12/10/24 Rx mupirocin 2 % topical ointment 1 applic topical QID #22 grams 05/02/25 05/23/25 Rx (Centany) Allergies Allergy/AdvReac Type Severity Reaction Status Date / Time No Known Allergies Allergy Verified 06/03/25 08:44 Vital Signs Vital Signs - 24 hr 06/03/25 08:47 Temperature 97.8 F Pulse Rate 66 Respiratory Rate 18 Blood Pressure 145/71 H Pulse Oximetry 100 Oxygen Delivery Room Air Exam Const: General: cooperative and healthy appearing Resp: Effort & Inspection: normal respiratory effort and able to speak in complete sentences Auscultation: clear to auscultation bilaterally Cardio: Rate: regular rate Rhythm: regular rhythm GI: Inspection: normal to inspection GI Palp: No No hepatosplenomegaly present Auscultation: normal bowel sounds Rectal Exam: deferred Skin: General skin exam: normal color Psych: Appearance: grossly normal Mental Status: mental status grossly normal Assessment and Plan Assessment and plan (1) Difficulty swallowing: Code(s): R13.10 - Dysphagia, unspecified Status: Acute Assessment and Plan: The patient is deemed a good candidate for the procedures. Consent signed. Will proceed. (2) Screening for colon cancer: Code(s): Z12.11 - Encounter for screening for malignant neoplasm of colon Status: Acute
--- NOTE | 2025-06-03 10:01 | S_PTH ---
PATIENT: Dana Landeros LOC: [facility] U#:[id number] AGE/SX: 54/F ROOM: RE06/03/[address]: Morales Yousif MD : 1970 BED: DIS: 06/03/2025 SPEC #: [id number] RECD: 06/03/25 10:36 STATUS: KECIA REQ #: [id number] WILBERT: 06/03/25 10:[address]: Morales Yousif DEPT: [facility] Surgical RECD BY: Shea Painting MLT, ([facility]) ENTERED: 06/03/25 10:37 SP TYPE: Surgical OTHR DR: Juan Garcia DO Tissues: A - Esophageal Biopsy Procedures: Hematoxylin and Eosin Stain Gross and Microscopic Level 4
--- NOTE | 2025-06-03 10:06 | SUR.OPER ---
egd ended at 1003 and colonoscopy started at 1011.
[2025-06-03 10:24] VITALS: BP 111/60; PULSE 58; RESP 15; O2SAT 100
[2025-06-03 10:34] VITALS: BP 123/70; PULSE 63; RESP 19; O2SAT 100
[2025-06-03 10:44] VITALS: BP 146/76; PULSE 58; RESP 15; O2SAT 100
== END 2025-06-03 10:55 | disposition home or self-care (01) ==
PROVIDERS: Anesthesiology; PCP Internal Medicine; Referring Provider Clinical Nurse Specialist; Visit Provider Internal Medicine Gastroenterology
PROC: 0DJ08ZZ Inspection of Upper Intestinal Tract, Via Natural or Artificial Opening Endoscopic (ICD-10-PCS; CPT 45378; principal; 2025-06-03 10:00)
DX: Z12.11 Encounter for screening for malignant neoplasm of colon (principal); K29.50 Unspecified chronic gastritis without bleeding; E11.9 Type 2 diabetes mellitus without complications; F17.210 Nicotine dependence, cigarettes, uncomplicated; F12.90 Cannabis use, unspecified, uncomplicated; Z80.7 Family history of other malignant neoplasms of lymphoid, hematopoietic and related tissues
CPT/HCPCS: 43239; 45378; 82948; 88305; J2704; J7120

== ENCOUNTER 2025-08-12 08:48 | Outpatient (CLI) | payer BC, SELFPAY ==
--- OUTSIDE RECORDS SUMMARY | 2025-08-12 09:26 | XMS_ITS | Clinical Summary ---
Author Organization [facility] Address [address] [place] [address] Care Team Providers Care Transmission Technician Name Role Phone Unknown, Notinfile Primary Care [...] care and plan to take patient to [facility] here. 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
--- OUTSIDE RECORDS SUMMARY | 2025-08-12 09:26 | XMS_ITS | Patient Health Record ---
Author Organization [facility] Address [address] [facility] [address] [place] [address] Care Team Providers Care Grain Scooper Name Role Phone UNKNOWN, UNKNOWN Primary Care Provider Greg Zuñiga [phone] Allergies No Known Allergies Reason For Referral [...] Problem Type II diabetes mellitus without complication (667054382) Type 2 diabetes mellitus without complication, without long-term current use of insulin (E11.9) Active confirmed Vital Signs Height 67 in 12/27/2024 Weight 175 lbs 12/27/2024 BMI 27.41 kg/m2 12/27/2024 Encounters Encounter Location Date Provider Diagnosis [facility] [address] [place] [address] 12/27/2024 Greg Vang Mucoid cyst, joint M67.40 [...] Insured Coverage Start Date Coverage End Date [facility] [address] [place] [address] [id number] Dana Landeros Self - patient is the insured Medical (General) History Medical History History ICD Code Diabetes High cholesterol Thyroid disease
--- OUTSIDE RECORDS SUMMARY | 2025-08-12 09:26 | XMS_ITS | Patient Health Record ---
Author Organization [facility] Address [address] [place], [place] [address] Phone [phone] Care Team Providers Care Business Director Name Role Phone Susy Jimenez MD Unavailable [phone] Reason For Referral No Information Medications Medication SIG (Take, Route, Frequency, Duration) Notes Start Date End Date Diagnosis (ICD Code) Status Ergocalciferol 1.25 MG (22125 UT) Capsule 1 capsule Orally weekly; Duration: 90 days 03/18/2025 Vitamin D deficiency (ICD_10 - E55.9) Active Vitamin D Active Omeprazole Active Social History Sex Observation Social History Observation Description Sex Observation Female Social History Section Notes: tobacco: daily, over 35 years alcohol: maybe once a year Caffeine: yes Problems Problem Type SNOMED Code ICD Code Dates Problem Status W/U Status Risk Notes Problem Chronic fatigue syndrome (disorder) (49874458) Chronic fatigue, unspecified (R53.82) Added On:2024 Active confirmed Problem Multinodular goiter (445239230) Multinodular goiter (E04.2) Added On:2024 Active confirmed Problem Type II diabetes mellitus without complication (627346288) Type 2 diabetes mellitus without complication, without long-term current use of insulin (E11.9) Added On:2024 Active confirmed Problem Vitamin D deficiency (42661398) Vitamin D deficiency (E55.9) Added On:2024 Active confirmed Vital Signs Vital Sign Value Notes Appt Date Heart Rate 69 /min 02/25/2025 Height-cm 170.18 cm 02/25/2025 Oximetry 97 % 02/25/2025 Blood pressure diastolic 78 mm Hg 02/2025 Weight-kg 78.93 kg 02/25/2025 Height 67 in 02/25/2025 Blood pressure systolic 137 mm Hg 02/2025 Weight 174.0 lbs 02/25/2025 BMI 27.25 kg/m2 02/25/2025 Encounters Date Time Type Facility Location Provider Diagnosis 08:40 AM Office Visit, Est Pt., Level 4 (56698) [facility] 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 Jimenez [address] [place] [address] Susy Jimenez Multinodular goiter E04.2 ; Type 2 diabetes mellitus without complication, without long-term current use of insulin E11.9 ; Multinodular goiter E04.2 ; Vitamin D deficiency E55.9 ; Type 2 diabetes mellitus without complication, without long-term current use of insulin E11.9 ; Vitamin D deficiency E55.9 ; Chronic fatigue, unspecified R53.82 and Dietary counseling and surveillance Z71.3 11:00 AM Telephone Encounter [facility] Jimenez [address] [place] [address] Susy Jimenez Vitamin D deficiency E55.9 Assessments Encounter Date Diagnosis (ICD Code) Assessment Notes Treatment Notes Section Notes 01/21/2025 Multinodular goiter (ICD-10 - E04.2) 01/21/2025 Multinodular goiter (ICD-10 - E04.2) 01/21/2025 Type 2 diabetes mellitus without complication, without long-term current use of insulin (ICD-10 - E11.9) 02/25/2025 Type 2 diabetes mellitus without complication, without long-term current use of insulin (ICD-10 - E11.9) 02/25/2025 Vitamin D deficiency (ICD-10 - E55.9) 03/18/2025 Vitamin D deficiency (ICD-10 - E55.9) 01/21/2025 Vitamin D deficiency (ICD-10 - E55.9) 01/21/2025 Type 2 diabetes mellitus without complication, without long-term current use of insulin (ICD-10 - E11.9) 02/25/2025 Multinodular goiter (ICD-10 - E04.2) 01/21/2025 Vitamin D deficiency (ICD-10 - E55.9) [...] examination and/or evaluation, counseling and educating the patient/family/caregi joi, ordering medications, tests, or procedures, referring and communicating with other health child care leader, documenting clinical information in the electronic or other health record, independently interpreting results and communicating results to the patient/family/caregi joi and care coordinating patient plan. Patient alert [...] examination and/or evaluation, counseling and educating the patient/family/caregi joi, ordering medications, tests, or procedures, referring and communicating with other health child care leader, documenting clinical information in the electronic or other health record, independently interpreting results and communicating results to the patient/family/caregi joi and care coordinating patient plan. Patient alert and oriented x 4 and aware of discussion noted above and in agreeance to plan in management of type 2 DM/diet controlled, vit D def, MNG and concerns for sensory changes/MRI brain ordered and provided to patient. Plan Of Treatment Pending Test Test Name Order Date .COMPREHENSIVE METABOLIC PANEL (91508) C MP 01/21/2025 .CBC (INCLUDES DIFF/PLT) (6399) 01/22/20 25 THYROID PEROXIDASE ANTIBODIES (5081) 09/2024 VITAMIN B12/FOLATE, SERUM PANEL (7065) 0 01/21/2025 T4, FREE (866) 01/21/2025 TSH (899) 01/21/2025 T3, FREE (71599) 01/21/2025 .VITAMIN D,25-OH,TOTAL,IA (77753) 2024 IODINE, SERUM/PLASMA (43070) 01/21/2025 TSI (THYROID STIMULATING IMMUNOGLOBULIN) (64631) 01/21/2025 *MRI BRAIN W/O AND W/ CONTRAST [SELLATUR ISICA] [id number] 02/25/2025 Insurance Providers Payer Name Payer Address Payer Phone Subscriber Number Group Number Insured Name Patient Relationship to Insured Coverage Start Date Coverage End Date Mildred BS [address] [place] [address] [id number] Dana Landeros Self - patient is the insured Medical (General) History Medical History History ICD Code type 2 diabetes hyperthyroidism
--- OUTSIDE RECORDS SUMMARY | 2025-08-12 09:26 | XMS_ITS | Clinical Summary ---
Author Organization [facility] Address [address] [place] [address] Phone Care Team Providers Care Broker Agricultural Produce Name Role Phone Unavailable Primary Care Provider Unavailabl e Allergies No known active allergies Social History Tobacco Use Types Packs/Day Years Used Date Smoking Tobacco: Never Assessed Comments Unknown Sex and Gender Information Value Date Recorded Sex Assigned at Not on file Legal Sex Female 12:13 PM PARADICHLOROBENZENE TENDER Gender Identity Not on file Sexual Orientation Not on file Last Filed Vital Signs Vital Sign Reading Time Taken Comments Blood Pressure 116/64 07/08/2022 2:05 PM PARADICHLOROBENZENE TENDER Pulse 81 07/08/2022 3:45 PM PARADICHLOROBENZENE TENDER Temperature 37.1 C (98.7 F) 07/08/2022 12:14 PM PARADICHLOROBENZENE TENDER Respiratory Rate 18 07/08/2022 3:45 PM PARADICHLOROBENZENE TENDER Oxygen Saturation 97% 07/08/2022 3:45 PM PARADICHLOROBENZENE TENDER Inhaled Oxygen Concentration - - Weight 81.6 kg (180 lb) 07/08/2022 12:14 PM PARADICHLOROBENZENE TENDER Height 170.2 cm (5' 7) 07/08/2022 12:14 PM PARADICHLOROBENZENE TENDER Body Mass Index 28.19 07/08/2022 12:14 PM PARADICHLOROBENZENE TENDER Plan of Treatment Health Maintenance Due Date [...]
--- OUTSIDE RECORDS SUMMARY | 2025-08-12 09:26 | XMS_ITS | Clinical Summary ---
Author Organization [facility] Address [facility] [place] [address] Care Team Providers Care Professor Of Biostatistics Name Role Phone Brenda Dubose CHAMBER OF [employer] DIVISION MANAGER Primary Care Provider [phone] Allergies No known active allergies Medications No known medications Social History Tobacco Use Types Packs/Day Years [...] Vaccines (1 of 2) 2022 COVID-19 Vaccine (1 - 2024-2 6 season) 2025 Influenza Adult (#1) 2025 Hepatitis A Vaccines Aged Out No long er eligible based on patient's age to complete this topic Meningococcal B Vaccine Aged Out No l onger eligible based on patient's age to complete this topic Meningococcal Vaccine Aged Out No elisha serene eligible based on patient's age to complete this topic RSV Immunizations Under 20 Months Aged Out No longer eligible based on patient's age to complete this topic Insurance Care Teams Professor Of Biostatistics Relationship Specialty Start Date End Date Brenda Dubose FNP [address] [facility] [address] [place] [address] PCP - General CLINICAL NURSE SPECIALIST 05/01/25
[2025-08-12 09:36] LABS: Hematocrit 37.9 % (37.0-47.0); Hemoglobin 12.8 g/dL (12.0-15.0)
== END 2025-08-12 08:49 | disposition home or self-care (01) ==
PROVIDERS: PCP Clinical Nurse Specialist; Visit Provider Obstetrics & Gynecology
DX: N95.0 Postmenopausal bleeding (principal); Z01.818 Encounter for other preprocedural examination
CPT/HCPCS: 36415; 85014; 85018

== ENCOUNTER 2025-08-16 | Day surgery (SDC) | payer BC, SELFPAY ==
[2025-08-08 14:44] VITALS: BMI 25.8
--- NOTE | 2025-08-08 14:57 | PC.NURSE ---
[facility] has started construction of its new state of the art ER which will open Spring 2026. With this, we anticipate parking may be a challenge for some our surgical patients and families. Parking spaces are limited but are available for all Surgical, obstetrics, and ER patients sharing this lot. If you arrive and find you are having a hard time finding a parking space, please note that we understand the challenges, please drive around the hospital and park near Hospital Entrance 1. When you enter this entrance, you can ask a volunteer to direct or take you back to the surgical waiting area to check in. We appreciate everyone?s understanding of these expected challenges while we build for your future. Report to the Outpatient Waiting Room, entrance under the green pavilion located off [address], at time 0600 on date 08/16/25. Planned Procedure Time: 0730.? Time changes happen often and if your time is changed the preop area will call you the afternoon before. - You and your visitor will be asked to self-screen and do not enter if you have any COVID symptoms. Please call surgeon if you need to reschedule. - A mask is optional within the hospital at this time. Patients may have clear liquids (water, carbonated beverages, clear teas, apple juice) until 3 hours prior to surgery with a maximum of 20 ounces. - No food from midnight until time of surgery and no smoking, or chewing tobacco (or any form of nicotine). No chewing gum, candy or mints. Take only the following medications with a SIP of water on the morning of surgery: N/A DO NOT STOP ANY OF YOUR OTHER PRESCRIPTION MEDICATIONS PRIOR TO SURGERY EXCEPT THE FOLLOWING Hold all vitamins and supplements for 3 days per anesthesiologist. Medications to discontinue per physician VIT D, PT ONLY TAKES ON SUNDAYS Date to take last dose 08/11/25 Please no make-up, nail danish, hairspray, perfume, deodorant, or body powder the day of surgery.? No jewelry (including any body piercings) or valuables the day of surgery, leave them at home.? Please take a shower or bath the night before, or the morning of, surgery with an antibacterial soap.? Wear comfortable, loose fitting clothing.? Children are encouraged to wear pajamas. - Jewelry must be removed prior to entering the operating room.? Rings and piercings that are not removed may be cut off. - The hospital will not accept responsibility for valuables.? - Please leave all valuables, including medications, at home the day of surgery. If you are going home after surgery, a licensed car driver must drive you home.? - NO public transportation without another adult if you receive anesthesia. - We recommend that an adult stay with you for 24 hours following discharge. - We also recommend that you do not drive, make important decision, drink alcoholic beverages, or take any drugs that were not prescribed by your health care provider for at least 24 hours after your discharge time. Follow any additional instructions given to you from your surgeon. Telephone instructions given to ÁLVARO CHARLES and asked if any additional questions and then verbalized understanding. Patient advised to call surgeon office or pre surgery nurse liaison [phone] if any additional questions.
--- NOTE | 2025-08-12 06:55 | PM.IMHP2 ---
H&P: HPI History of Present Illness Date/Time: 08/12/25 06:55 Chief Complaint: Postmenopausal bleeding Narrative: Is a 54-year-old 2 para 2 with type 2 diabetes admitted for hysteroscopy dilatation curettage. She has not had bleeding for some time then had bleeding. She had ultrasound that showed her lining to be 9mm which is greater than the prescribed 4mm and she will undergo hysteroscopy dilatation curettage risks and benefits reviewed including not exclusive of , aspiration, bleeding, transfusion, perforation injury to bowel, bladder, ureters, or other internal organs with need for open laparotomy. She received the ACOG handout entitled hysteroscopy as well as dilatation curettage respectively. She had all questions answered and asked to proceed Review of Systems Review of Systems: All systems reviewed & are unremarkable except as noted in HPI and below PMFSH Past Medical History Medical History Tobacco use Oropharyngeal dysphagia Type 2 diabetes mellitus Hyperglycemia Prediabetes Encounter to [facility] care Hospital discharge follow-up Migraine Headache Thyroid nodule Family History Family History Father Lymphoma Mother Thyroid disorder Sibling Thyroid disorder Social History Social History Smoking packs per day: 1 Smoking cigarettes per day: 20.0 Years smoked: 40 Smoking pack-years: 40.00 Smoking status: Current every day smoker Tobacco type: cigarettes Alcohol intake: never Substance use: current Substance use type: marijuana Other substance usage details: frequently Lack of Transportation: No Lack of Food: Never True Current Housing: I Have Housing Concerned About Future Housing: No Difficulty Paying Gas/Electric Bills: No Difficulty Paying for Meds: No Currently Unemployed: No Education: Associate Degree Difficulty w/ Childcare or Family Care: No Living arrangements: with family Occupation/Education: occupation 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 Gender identity (if verbalized by the patient): Female Spiritual care concerns: No Meds Home Medications and Allergies Home Medications ?Medication ?Instructions ?Recorded ?Confirmed ?Type blood sugar diagnostic (Blood #50 ea 12/10/24 08/08/25 Rx Glucose Test strips) blood-glucose meter #1 ea 04/21/25 12/18/25 Rx cholecalciferol (vitamin D3) 1,250 1,250 mcg PO WEEKLY #8 tabs 12/10/24 08/08/25 Rx mcg (50,000 unit) tablet lancets 31 gauge #100 ea 12/10/24 08/08/25 Rx Allergies Allergy/AdvReac Type Severity Reaction Status Date / Time No Known Allergies Allergy Verified 08/08/25 15:04 Exam Const: General: cooperative and healthy appearing Resp: Effort & Inspection: normal respiratory effort and able to speak in complete sentences Auscultation: clear to auscultation bilaterally Cardio: Rate: regular rate Rhythm: regular rhythm GI: Inspection: normal to inspection GI Palp: No No hepatosplenomegaly present Auscultation: normal bowel sounds Rectal Exam: deferred Skin: General skin exam: normal color Psych: Appearance: grossly normal Mental Status: mental status grossly normal Assessment and Plan Assessment and plan (1) Postmenopausal bleeding: Code(s): N95.0 - Postmenopausal bleeding Status: Acute Plan Will proceed with hysteroscopy/dilatation and curettage
--- OUTSIDE RECORDS SUMMARY | 2025-08-16 00:03 | XMS_ITS | Patient Health Record ---
Author Organization [facility] Address [address] [place], [place] [address] Phone [phone] Care Team Providers Care Traffic Control Operator Name Role Phone Susy Jimenez MD Unavailable [phone] Reason For Referral No Information Medications Medication SIG (Take, Route, Frequency, Duration) Notes Start Date End Date Diagnosis (ICD Code) Status Ergocalciferol 1.25 MG (12924 UT) Capsule 1 capsule Orally weekly; Duration: [...] Risk Notes Problem Chronic fatigue syndrome (disorder) (84150657) Chronic fatigue, unspecified (R53.82) Added On:2024 Active confirmed Problem Multinodular goiter (797183123) Multinodular goiter (E04.2) Added On:2024 Active confirmed Problem Type II diabetes mellitus without complication (948482464) Type 2 diabetes mellitus without complication, without long-term current use of insulin (E11.9) Added On:2024 Active confirmed Problem Vitamin D deficiency (90846838) Vitamin D deficiency (E55.9) Added On:2024 Active [...] Date Time Type Facility Location Provider Diagnosis 5 09:20 AM Office Visit, New Pt., Level 3 (12809) [facility] Jimenez [address] [place] [address] Susy Jimenez Multinodular goiter E04.2 ; Type 2 diabetes mellitus without complication, without long-term current use of insulin E11.9 ; Multinodular goiter E04.2 ; Vitamin D deficiency E55.9 ; Type 2 diabetes mellitus without complication, without long-term current use of insulin E11.9 ; Vitamin D deficiency E55.9 ; Chronic fatigue, unspecified R53.82 and Dietary counseling and surveillance Z71.3 5 08:40 AM Office Visit, Est Pt., Level 4 (82887) [facility] 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 Jimenez [address] [place] [address] Susy Jimenez Vitamin D deficiency E55.9 Assessments Encounter Date Diagnosis (ICD Code) Assessment Notes Treatment Notes Section Notes 01/21/2025 Multinodular goiter (ICD-10 - E04.2) 01/21/2025 Multinodular goiter (ICD-10 - E04.2) 01/21/2025 Type 2 diabetes mellitus without complication, without long-term current use of insulin (ICD-10 - E11.9) 03/18/2025 Vitamin D deficiency (ICD-10 - E55.9) 02/25/2025 Type 2 diabetes mellitus without complication, without long-term current use of insulin (ICD-10 - E11.9) 02/25/2025 Vitamin D deficiency (ICD-10 - E55.9) 02/25/2025 [...] procedures, referring and communicating with other health companion caregiver, documenting clinical information in the electronic or [...] procedures, referring and communicating with other health companion caregiver, documenting clinical information in the electronic or [...] Test Name Order Date .COMPREHENSIVE METABOLIC PANEL (97844) C MP 01/21/2025 .CBC (INCLUDES DIFF/PLT) (6399) 01/22/20 25 THYROID PEROXIDASE ANTIBODIES (5081) 09/2024 VITAMIN B12/FOLATE, SERUM PANEL (7065) 0 01/21/2025 T4, FREE (866) 01/21/2025 TSH (899) 01/21/2025 T3, FREE (33495) 01/21/2025 .VITAMIN D,25-OH,TOTAL,IA (83771) 2024 IODINE, SERUM/PLASMA (48718) 01/21/2025 TSI (THYROID STIMULATING IMMUNOGLOBULIN) (09705) 01/21/2025 *MRI BRAIN W/O AND W/ CONTRAST [SELLATUR ISICA] [id number] 02/25/2025 Insurance Providers Payer Name Payer Address Payer Phone Subscriber Number Group Number Insured Name Patient Relationship to Insured Coverage Start Date Coverage End Date Mildred BS [address] [place] [address] [id number] Dana Landeros Self - patient is the insured Medical (General) History Medical History History ICD Code type 2 diabetes hyperthyroidism
--- OUTSIDE RECORDS SUMMARY | 2025-08-16 00:03 | XMS_ITS | Clinical Summary ---
Author Organization [facility] Address [address] [place] [address] Care Team Providers Care Printing And Stamping Supervisor Name Role Phone Unknown, Notinfile Primary Care [...] care and plan to take patient to [facility] here. 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
--- OUTSIDE RECORDS SUMMARY | 2025-08-16 00:03 | XMS_ITS | Clinical Summary ---
Author Organization [facility] Address [address] [place] [address] Phone Care Team Providers Care Fish Hatchery Inspector Name Role Phone Unavailable Primary Care Provider Unavailabl e Allergies No known active allergies Social History Tobacco Use Types Packs/Day Years Used Date Smoking Tobacco: Never Assessed Comments Unknown Sex and Gender Information Value Date Recorded Sex Assigned at Not on file Legal Sex Female 12:13 PM BONE GLUE MAKER Gender Identity Not on file Sexual Orientation Not on file Last Filed Vital Signs Vital Sign Reading Time Taken Comments Blood Pressure 116/64 07/08/2022 2:05 PM BONE GLUE MAKER Pulse 81 07/08/2022 3:45 PM BONE GLUE MAKER Temperature 37.1 C (98.7 F) 07/08/2022 12:14 PM BONE GLUE MAKER Respiratory Rate 18 07/08/2022 3:45 PM BONE GLUE MAKER Oxygen Saturation 97% 07/08/2022 3:45 PM BONE GLUE MAKER Inhaled Oxygen Concentration - - Weight 81.6 kg (180 lb) 07/08/2022 12:14 PM BONE GLUE MAKER Height 170.2 cm (5' 7) 07/08/2022 12:14 PM BONE GLUE MAKER Body Mass Index 28.19 07/08/2022 12:14 PM BONE GLUE MAKER Plan of Treatment Health Maintenance Due Date [...]
--- OUTSIDE RECORDS SUMMARY | 2025-08-16 00:04 | XMS_ITS | Clinical Summary ---
Author Organization [facility] Address [facility] [place] [address] Care Team Providers Care Punch Molder Name Role Phone Brenda Dubose SLEEP LAB TECHNOLOGIST Primary Care Provider [phone] Allergies No known active allergies Medications No [...] to complete this topic Insurance Care Teams Punch Molder Relationship Specialty Start Date End Date Brenda Dubose FNP [address] [facility] [address] [place] [address] PCP - General CLINICAL NURSE SPECIALIST 05/01/25
[2025-08-16 06:05] VITALS: BP 114/63; PULSE 69; RESP 18; TEMP 36.2; O2SAT 99
[2025-08-16] MEDS: ACETAMINOPHEN 500 MG TABLET 1000 MG PO (06:22)
[2025-08-16] MEDS: LACTATED RINGERS 1,000 ML 30 ML IV CONT (06:25)
--- NOTE | 2025-08-16 06:37 | WPDHPUPDATE1 ---
History and Physical Update Update Date/Time: 08/16/25 06:37 History and Physical has been reviewed, including an updated exam of the patient. There are NO changes in the patient's condition. Risks, benefits, and alternatives have been discussed and questions answered. Patient agrees to proceed with procedure.
--- NOTE | 2025-08-16 07:03 | WPDANESEPPF ---
Anes - Initial Pre Proc Eval Procedure: Operation Date: 08/16/25 07:30 Proposed Procedures p Hysteroscopy Dilation and Curettage - Peter Mo MD Date/Time: 08/16/25 07:03 Surgeon: Peter Mo MD Pre Op Diagnosis: POST MENOPAUSAL BLEEDING Patient Data Age: 54 Gender: F Height: 1.7 m Weight: 73.2 kg Last Vital Signs Temp 36.2 C L 08/16/25 06:05 Pulse 69 08/16/25 06:05 Resp 18 08/16/25 06:05 BP 114/63 08/16/25 06:05 Pulse Ox 99 08/16/25 06:05 O2 Del Method Room Air 08/16/25 06:05 Allergies Allergy/AdvReac Type Severity Reaction Status Date / Time No Known Allergies Allergy Verified 08/16/25 07:02 Home Medications ?Medication ?Instructions ?Recorded ?Confirmed ?Type blood sugar diagnostic (Blood #50 ea 12/10/24 08/08/25 Rx Glucose Test strips) blood-glucose meter #1 ea 12/10/24 08/08/25 Rx cholecalciferol (vitamin D3) 1,250 1,250 mcg PO WEEKLY #8 tabs 12/10/24 08/16/25 Rx mcg (50,000 unit) tablet lancets 31 gauge #100 ea 12/10/24 08/08/25 Rx hydrocodone 5 mg-acetaminophen 325 1 tablet PO Q4H PRN pain #14 tabs 08/16/25 Rx mg tablet Patient hx anesthesia problems: none Family hx anesthesia problems: none Results Review: All pre-operative results and documents have been reviewed as part of the pre-operative evaluation. [facility] Past Medical History Medical History Tobacco use Oropharyngeal dysphagia Type 2 diabetes mellitus Hyperglycemia Prediabetes Encounter to establish care Hospital discharge follow-up Migraine Headache Thyroid nodule Family History Family History Father Lymphoma Mother Thyroid disorder Sibling Thyroid disorder Social History Social History Smoking packs per day: 1 Smoking cigarettes per day: 20.0 Years smoked: 40 Smoking pack-years: 40.00 Smoking status: Current every day smoker Tobacco type: cigarettes Alcohol intake: never Substance use: current Substance use type: marijuana Other substance usage details: daily Lack of Transportation: No Lack of Food: Never True Current Housing: I Have Housing Concerned About Future Housing: No Difficulty Paying Gas/Electric Bills: No Difficulty Paying for Meds: No Currently Unemployed: No Education: Associate Degree Difficulty w/ Childcare or Family Care: No Living arrangements: with family Occupation/Education: occupation 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 Informed Consent: The patient's anesthetic plan and its attendant risks and benefits were discussed with the patient/family/POA. Questions were solicited and answers provided to the satisfaction of the patient/family/POA.
[2025-08-16 07:09] LABS: BEDSIDEPREGUCG Negative (Negative)
[2025-08-16] MEDS: LIDOCAINE 1% LOCAL INJ 10 ML VIAL INFILTRATE (07:32)
--- NOTE | 2025-08-16 07:40 | W.PM.PROC2 ---
Procedure Note - Detailed Date of Procedure 08/16/25 Pre-op Diagnosis POST MENOPAUSAL BLEEDING Post-op Diagnosis Other (Postmenopausal bleeding and uterine polyps) Procedure Performed Hysteroscopy/dilatation curettage/polypectomy Surgeon Peter Mo MD Anesthesia MAC and Local Indications This is a 54-year-old female postmenopausal bleed Findings Benign atrophic looking endometrium with each angle of the tube ostia Description of Procedure Patient was prepped and draped sterile fashion placed in dorsal lithotomy position. Excellent IV sedation speculum placed posterior. Anterior lip of the cervix grasped with a single-tooth. 2.5cc 1% xylocaine anesthesia dysuria at 2, 4, 8, 10:00 a.m. the cervix. Uterus sounded 8cm. Serial dilatation fragmented dilators performed followed passage of 5mm visualizing hysteroscope using normal saline as visualizing medium. On very benign bland endometrium was seen however there were some small polyps at the fundus and these then were removed using the small. Uterus scraped over the entire 360? in the instruments withdrawn. Blood loss estimated at5cc. All sponge, needle, instrument counts were correct. There were no immediate complications Estimated Blood Loss 5 Drains No Packing No Pathology Yes Complications No immediate complications Condition Stable Disposition PACU
[2025-08-16 07:43] VITALS: BP 129/57; PULSE 57; RESP 16; O2SAT 98
--- NOTE | 2025-08-16 07:45 | S_PTH ---
PATIENT: Dana Landeros LOC: [facility] U#:[id number] AGE/SX: 54/F ROOM: RE08/16/[address]: Peter Mo MD : 1970 BED: DIS: 08/16/2025 SPEC #: [id number] RECD: 08/16/25 09:51 STATUS: KECIA REQ #: [id number] WILBERT: 08/16/25 07:[address]: Peter Bowen DEPT: [facility] Surgical RECD BY: Dia Patel ENTERED: 08/16/25 09:52 SP TYPE: Surgical OTHR DR: Brenda Dubose, DONNA Tissues: A - Endometrial Curettings Procedures: Hematoxylin and Eosin Stain Gross and Microscopic Level 4
[2025-08-16 08:10] VITALS: BP 126/66; PULSE 66; RESP 20
[2025-08-16 08:19] VITALS: BP 126/66; PULSE 62; RESP 20
== END 2025-08-16 08:20 | disposition home or self-care (01) ==
PROVIDERS: PCP Clinical Nurse Specialist; Visit Provider Obstetrics & Gynecology
PROC: 0U5B8ZZ Destruction of Endometrium, Via Natural or Artificial Opening Endoscopic (ICD-10-PCS; CPT 58563; principal; 2025-08-16 07:30)
DX: N95.0 Postmenopausal bleeding (principal); N85.8 Other specified noninflammatory disorders of uterus; F17.210 Nicotine dependence, cigarettes, uncomplicated; F12.90 Cannabis use, unspecified, uncomplicated
CPT/HCPCS: 58558; 88305; A9270; J2003; J2704; J3010; J7120